=== PATIENT | male | born 1995 | race Asian ===

== ENCOUNTER 2019-02-01 10:49 | Emergency (ER) | payer MEDICAID ==
[~2019-02-01] VITALS: Ht 170.2 cm; Wt 54.0 kg
[2019-02-01 10:57] VITALS: BP 112/68
--- NOTE | 2019-02-01 11:04 | NUR ---
DR. MCGREGOR AT BEDSIDE FOR EVAL.
--- NOTE | 2019-02-01 11:14 | NUR ---
Patient discharged to home in stable condition. Written and verbal after care instructions given. Patient verbalizes understanding of instruction.
== END 2019-02-01 11:16 | disposition home or self-care (01) ==
LOC: ER 10:52
DX: J02.9 Acute pharyngitis, unspecified (principal)

== ENCOUNTER 2019-06-22 13:37 | Emergency (ER) | payer MEDICAID ==
[~2019-06-22] VITALS: Ht 167.6 cm; Wt 55.3 kg
[2019-06-22 13:41] VITALS: BP 109/72
== END 2019-06-22 14:23 | disposition home or self-care (01) ==
LOC: ER 13:37
DX: J06.9 Acute upper respiratory infection, unspecified (principal)